=== PATIENT | female | born 1980 | race Caucasian/White ===

== ENCOUNTER 2021-01-22 14:51 | Inpatient (IN) | payer OTHER ==
[~2021-01-22] VITALS: Ht 162.6 cm; Wt 93.2 kg
[~2021-01-22 14:51] MED LIST: BUSPAR DIVIDOSE15 MG PO; IBU800 M1 PO; PERCOCET 325 MG1 TA2 PO; PRENATAL1 TA1 PO
[2021-01-22] MEDS ORDERED: PROZAC40 MG PO (16:03)
[2021-01-22 16:14] LABS: BASO # 0.1 (0.0-0.2); BASO % 0.4 % (0.0-2.0); EOS # 0.1 (0.0-0.7); EOS % 0.5 % (0-4.0); GRAN # 12.4 (1.4-6.5); GRAN % 80.7 % (42.2-75.2); HEMATOCRIT 39.6 % (37.0-47.0); HEMOGLOBIN 13.1 g/dl (12.5-16.0); LYMPH # 1.7 (1.2-3.4); LYMPH % 10.9 % (20.0-51.0); MEAN CELL VOLUME 85 fl (80.0-100.0); MEAN CORPUSCULAR HEMOGLOBIN 28 pg (27.0-31.0); MEAN CORPUSCULAR HGB CONC 33 g/dl (33.0-37.0); MEAN PLATELET VOLUME 9.9 fl (7.4-10.4); MONO # 1.1 (0.1-0.6); MONO % 7.2 % (1.7-9.3); PLATELET COUNT 231 K/mm3 (130-400); RED BLOOD COUNT 4.64 M/mm3 (4.10-5.30); REDCELL DISTRIBUTION WIDTH-CV 13.4 % (11.5-14.5)
[2021-01-22 16:32] LABS: ALBUMIN 4.1 gm/dL (3.5-5.0); BILIRUBIN,TOTAL 0.6 mg/dL (0.0-1.0); CALCIUM 9.1 mg/dL (8.4-10.2); CREATININE, serum 1.18 (0.52-1.25); POTASSIUM 3.6 mmol/L (3.4-5.0); TOTAL PROTEIN 7.7 gm/dL (6.4-8.2)
[2021-01-22 16:59] LABS: COLLECTION METHOD CLEAN CATCH
[2021-01-22 17:08] LABS: C-REACTIVE PROTEIN 15.8 mg/dL (0.0-0.9)
[2021-01-22 17:16] LABS: PH 6 (5-8); URINE APPEARANCE Clear; URINE BACTERIA Rare /hpf; URINE BILIRUBIN Negative (NEGATIVE); URINE BLOOD 1+ (NEGATIVE); URINE COLOR Yellow; URINE GLUCOSE Negative (NEGATIVE); URINE KETONE Negative (NEGATIVE); URINE LEUKOCYTE ESTERASE 1+ (NEGATIVE); URINE NITRATE Negative (NEGATIVE); URINE PROTEIN(semi-quant) Negative (NEGATIVE); URINE RBC 0-2 /hpf; URINE UROBILINOGEN Negative (NEGATIVE)
--- NOTE | 2021-01-22 18:22 | NUR ---
REPORT FROM [facility] ED. PT TO ROOM 327.
[2021-01-22 18:55] VITALS: BP 106/68; PULSE 72; TEMP 97.7
--- NOTE | 2021-01-22 21:00 | NUR ---
Patient and oriented to room and call light. Admission and med rec complete. Fluids infusing per orders and toradol administered. Patient ambulating independently in room. No other needs at this time.
[2021-01-22 23:48] VITALS: BP 101/59; PULSE 87; TEMP 98.6
[2021-01-23] VITALS (11 sets, daily range): BP systolic 104–116; BP diastolic 57–70; PULSE 73–95; TEMP 97.7–99.5
--- NOTE | 2021-01-23 01:00 | NUR ---
Patient requests pain medication. Morphine administered along with zofran to prevent nausea.
--- NOTE | 2021-01-23 09:20 | NUR ---
Patient to surgery with surgical staff at 0810.
--- NOTE | 2021-01-23 09:24 | NUR ---
Initial visit attempt; thanked Machining Technician for offering God's blessings for his Sofia's surgical procedure and recovery to go well.
--- NOTE | 2021-01-23 10:35 | NUR ---
Patient returned from surgery at 0955. Assessment unchanged except hamilton catheter in place to dependent drainage, draining clear yellow urine.
--- NOTE | 2021-01-23 11:35 | NUR ---
Patient alert and oriented, answers questions appropriately. See assessment. Gabriel catheter in place to dependent drainage. No c/o back or flank pain. Post op exercises reviewed with patient. No c/o at this time.
--- NOTE | 2021-01-23 12:41 | NUR ---
Steel Hanger met with patient to discuss discharge planning. Patient's , Mor (ph#[phone]) is at bedside. Patient lives in [place], [place] with Mor and sees Dr. Carolina for primary care. Patient obtains medications from [facility] with no difficulties. Patient does not use any DME and is independent with ADLS. Patient does not have Advance Directives and was not interested in completing DPOA-HC at this time. Patient plans to return home upon discharge. Discharge Plan: Home
--- NOTE | 2021-01-23 20:00 | NUR ---
Pt. laying in bed at this time. Pt. is A&OX3, assessment complete. INT to lt. wrist patent. Pt. denies pain at this time. Gabriel catheter to DD clear yellow urine noted. Pt. denies further needs, call light within reach.
[2021-01-24 04:53] VITALS: BP 112/62; PULSE 61; TEMP 97.7
[2021-01-24 08:15] VITALS: BP 122/67; PULSE 72; TEMP 97.9
--- NOTE | 2021-01-24 08:30 | NUR ---
Patient has been resting comfortably this morning. Minimal complaints of pain and denies nausea. She is worried about her urine output but she from her description the urine looks better. Her was here. She is waiting for Dr Marin to come see her and discharge her. She had several questions about her catheter coming out, shes worried about pain. No other changes at this time. Call light within reach.
--- NOTE | 2021-01-24 10:22 | NUR ---
First visit from the ui developer with angular js. No needs right now.
[2021-01-24] MEDS ORDERED: BACTRIM DS 8001 TAB PO (10:50)
[2021-01-24] MEDS ORDERED: NORCO 325 MG-51 TAB PO (10:50)
[2021-01-24] MEDS ORDERED: DIFLUCAN150 MG PO (10:50)
[2021-01-24] MEDS ORDERED: FLOMAX 0.40.4 MG/CAP PO (10:50)
[2021-01-24 12:41] VITALS: BP 118/62; PULSE 79; TEMP 98.3
--- NOTE | 2021-01-24 13:30 | NUR ---
Patient voided twice since catheter discontinued. Her urine is pink and slightly hazy, no clots. Patient is discharging home. Discharge instructions discussed with patient. No questions verbalized. INT discontinued. All belongings packed up and sent with patient. Her is here to take her home. He picked up all her prescriptions from the pharmacy. Copies of discharge instructions sent with patient.
== END 2021-01-24 13:30 | disposition home or self-care (01) | DRG 854 ==
LOC: COL.ER 14:51 → SURG 18:10
PROVIDERS: Family Medicine; Nurse Practitioner; ADMIT Urology
PROC: BT1D1ZZ Fluoroscopy of Right Kidney, Ureter and Bladder using Low Osmolar Contrast (ICD-10-PCS; principal; 2021-01-23 08:30)
PROC: 0T768DZ Dilation of Right Ureter with Intraluminal Device, Via Natural or Artificial Opening Endoscopic (ICD-10-PCS; 2021-01-23 08:30)
DX: A41.9 Sepsis, unspecified organism (principal); N20.2 Calculus of kidney with calculus of ureter
CPT/HCPCS: C2617; G0378; J0696; J1170; J1885; J2270; J2405; J2704; J2765; J3010; J7030; Q9967

== ENCOUNTER 2021-02-17 10:30 | Day surgery (SDC) | payer OTHER ==
[~2021-02-17] VITALS: Ht 162.6 cm; Wt 94.6 kg
[2021-02-17] VITALS (8 sets, daily range): BP systolic 102–114; BP diastolic 52–70; PULSE 71–93; TEMP 97.9–98.1
[~2021-02-17 10:30] MED LIST changes: +BACTRIM DS 8001 TAB PO; +DIFLUCAN150 MG PO; +FLOMAX 0.40.4 MG/CAP PO; +NORCO 325 MG-51 TAB PO; +PROZAC40 MG PO
--- NOTE | 2021-02-17 15:00 | NUR ---
PATIENT TRANSPORTED PER CART FROM PACU TO [place] [facility] ACCOMPANIED BY ELECTION ASSISTANT. PATIENT NEEDS TO VOID. PATIENT AMBULATED FROM CART TO RESTROOM WITH 2 ASSIST. SLOW STEADY GAIT. PATIENT C/O DISCOMFORT AND SLIGHT DIZZINESS. STAFF STAY IN RESTROOM. PATIENT VOIDS WITHOUT PROBLEMS. PATIENT AMBULATED BACK TO BAY 8 AND BACK TO CART. FAMILY IN ROOM. VSS ON ROOM AIR. PATIENT CONTINUES TO RATE DISCOMFORT [id number].
--- NOTE | 2021-02-17 15:18 | NUR ---
VSS ON ROOM AIR. PATIENT GIVEN SPRITE TO DRINK. FAMILY AT BEDSIDE. PATIENT GIVEN FENTANYL 25MCG IV PUSH ORDERED. PATIENT STATES DIZZINESS IMPROVED.
--- NOTE | 2021-02-17 15:35 | NUR ---
VSS ON ROOM AIR. PATIENT STATES DISCOMFORT CONTINUES SLIGHT IMPROVEMENT 02/28 PATIENT GIVEN FENTANYL 25MCG IV PUSH ORDERED. FAMILY CONTINUE IN ROOM. PATIENT TALKS WITH FAMILY. PATIENT GIVEN TOAST TO EAT.
--- NOTE | 2021-02-17 15:50 | NUR ---
VSS ON ROOM AIR. PATIENT STATES THAT MEDICATION IS TAKING THE EDGE OFF DISCOMFORT. EATS TOAST WITHOUT PROBLEMS AND DRINKS WITHOUT PROBLEMS. DENIES NAUSEA.
--- NOTE | 2021-02-17 16:13 | NUR ---
VSS ON ROOM AIR. PATIENT TALKING WITH FAMILY. PATIENT STATES THAT THE EDGE IS OFF OF HER DISCOMFORT BUT THAT IT IS STILL THERE. DENIES NAUSEA. 1609 PATIENT GIVEN PERCOCET 235/5MG ORDERED. RESP--15. PATIENT TALKING WITH FAMILY.
--- NOTE | 2021-02-17 16:20 | NUR ---
VSS ON ROOM AIR. PATIENT LOOKING AT PHONE AND TALKING WITH FAMILY. PATIENT STATES DISCOMFORT SAME, WAITING FOR PO MEDICATION TO START WORKING.
--- NOTE | 2021-02-17 16:35 | NUR ---
VSS ON ROOM AIR. PATIENT STATES THAT MEDICATION IS STARTING TO WORK. DENIES NAUSEA. 1640 IV'D WITH CATHETER TIP INTACT. PRESSURE AND BANDAGE APPLIED. PATIENT AMBULATED TO RESTROOM AND VOIDS WITHOUT PROBLEMS.
--- NOTE | 2021-02-17 16:45 | NUR ---
DISCHARGE INSTRUCTIONS GIVEN VERBAL AND DISCHARGE PACKET GIVEN TO PATIENT AND . QUESTIONS ANSWERED AND PATIENT VOICED UNDERSTANDING. PATIENT CHANGES INTO STREET CLOTHES. 165 PATIENT DISCHARGED PER WHEEL CHAIR ACCOMPANIED BY AMB RN TO PRIVATE VECHILE DRIVEN BY .
== END 2021-02-17 16:53 | disposition home or self-care (01) ==
LOC: SDCO 10:30
DX: N20.2 Calculus of kidney with calculus of ureter (principal); F32.9 Major depressive disorder, single episode, unspecified; F41.9 Anxiety disorder, unspecified; Z90.89 Acquired absence of other organs; Z87.440 Personal history of urinary (tract) infections; Z79.899 Other long term (current) drug therapy
CPT/HCPCS: C1769; C2617; J0690; J1885; J2405; J2704; J3010; J7120

== ENCOUNTER → 2021-05-12 | Outpatient (CLI) | payer OTHER | LOC: MC.RAD 09:39 | DX: Z12.31 Encounter for screening mammogram for malignant neoplasm of breast (principal); N64.89 Other specified disorders of breast ==

== ENCOUNTER → 2021-05-18 | Outpatient (CLI) | payer OTHER | LOC: MC.RAD 09:53 | DX: R92.2 Inconclusive mammogram (principal); N64.89 Other specified disorders of breast ==